=== PATIENT | male | born 1970 | race Caucasian/White ===

== ENCOUNTER 2021-04-29 23:09 | Emergency (ER) | payer OTHER ==
[~2021-04-29] VITALS: Ht 175.3 cm; Wt 90.3 kg
[2021-04-29 23:09] VITALS: BP 160/84
[2021-04-29] MEDS ORDERED: CODE30TA PO (23:16)
[2021-04-29] MEDS ORDERED: AMOX875T PO (23:16)
[2021-04-30 01:40] LABS: BASO # 0.1 10^3/uL (0.0-0.2); BASO % 0.6 % (0.0-1.0); HEMATOCRIT 37.5 % (42.0-52.0); HEMOGLOBIN 12.8 g/dl (13.5-17.5); LYMPH # 1.5 10^3/uL (1.5-5.0); LYMPH % 7.5 % (24.0-44.0); MEAN CORPUSCULAR HEMOGLOBIN 31.7 pg (27.0-33.0); MEAN CORPUSCULAR HGB CONC 34.1 g/dl (32.0-36.5); MEAN CORPUSCULAR VOLUME 92.8 fl (80.0-96.0); MONO % 9.5 % (2.0-8.0); NEUTROPHILS # 16.6 10^3/uL (1.5-8.5); NEUTROPHILS % 80.8 % (36.0-66.0); PLATELET COUNT, AUTOMATED 347 10^3/uL (150-450); RED BLOOD COUNT 4.04 10^6/uL (4.30-6.10)
[2021-04-30 01:42] LABS: WHITE BLOOD COUNT 20.5 10^3/uL (4.0-10.0)
[2021-04-30] MEDS ORDERED: MORPHINE 4 MG/ML 1ML VIAL/SYRINGE (J2270) IV PRN (02:00)
[2021-04-30] MEDS ORDERED: ONDANSETRON 4MG/2ML VIAL IV ONE (02:00)
[2021-04-30] MEDS ORDERED: ISOVUE-370 76% 100ML VIAL As Ordered ONE (02:03)
[2021-04-30 02:11] LABS: BLOOD UREA NITROGEN 10 MG/DL (7-18); CALCIUM LEVEL 9.2 MG/DL (8.5-10.1); CARBON DIOXIDE LEVEL 26 MEQ/L (21-32); CHLORIDE LEVEL 104 MEQ/L (98-107); CREATININE FOR GFR 0.76 MG/DL (0.70-1.30); GLOMERULAR FILTRATION RATE > 60.0 (>60); GLUCOSE, FASTING 108 MG/DL (70-100); POTASSIUM SERUM 4.5 MEQ/L (3.5-5.1); SODIUM LEVEL 137 MEQ/L (136-145)
--- NOTE | 2021-04-30 03:47 | REPVR ---
PROCEDURE INFORMATION: Exam: CT Maxillofacial With Contrast Exam date and time: 04/30/2021 1:56 AM Age: 50 years old Clinical indication: Jaw pain and maxilla pain; Prior surgery; Surgery date: <1 month; Surgery type: Dental extraction; Additional info: Right facial swelling TECHNIQUE: Imaging protocol: Computed tomography images of the face with intravenous contrast. Radiation optimization: All CT scans at this facility use at least one of these dose optimization techniques: automated exposure control; mA and/or kV adjustment per patient size (includes targeted exams where dose is matched to clinical indication); or iterative reconstruction. Contrast material: ISO; Contrast volume: 75 ml; Contrast route: INTRAVENOUS (IV); COMPARISON: No relevant prior studies available. FINDINGS: Orbital cavity: Orbits are normal. Globes are unremarkable. Bones/joints: No acute fracture. Paranasal sinuses: Normal. No air-fluid levels. Soft tissues: Heterogeneously enlarged right masseter and right medial pterygoid muscles with mild stranding of the adjacent fat and effacement of normal adjacent fat planes. Right cervical adenopathy. Larynx: The right epiglottic vallecula is effaced. IMPRESSION: Heterogeneously enlarged right masseter and right medial pterygoid muscles with mild stranding of the adjacent fat and effacement of normal adjacent fat planes. The right epiglottic vallecula is effaced. Suspect underlying phlegmon although discrete drainable abscess is not clearly defined. Electronically signed by: Dean Miller On 04/30/2021 03:47:26 AM
[2021-04-30] MEDS ORDERED: PERC5TAB12 PO (04:50)
[2021-04-30] MEDS ORDERED: CLEO300C2 PO (04:50)
[2021-04-30] MEDS ORDERED: OXYCODONE/APAP 5MG/325MG(BULK FOR ED) 1 TABLET PO ONE (04:50)
[2021-04-30] MEDS ORDERED: CLINDAMYCIN 600 MG in IV 1 EA IV ONE (04:50)
== END 2021-04-30 05:32 | disposition home or self-care (01) ==
LOC: M ED 23:09
DX: K04.7 Periapical abscess without sinus (principal); F17.200 Nicotine dependence, unspecified, uncomplicated
CPT/HCPCS: 70487; 80048; 85025; 86140; 96374; 96375; 99283; J2270; J2405; Q9967